=== PATIENT | male | born 1990 | race Caucasian/White ===

== ENCOUNTER 2019-04-08 12:05 | Emergency (ER) | payer MEDICAID, OTHER ==
[~2019-04-08] VITALS: Ht 170.2 cm; Wt 74.8 kg
[2019-04-08 12:13] VITALS: BP 138/87
[2019-04-08 12:55] VITALS: BP 127/72
== END 2019-04-08 13:02 | disposition home or self-care (01) ==
LOC: MED 12:05
DX: M67.432 Ganglion, left wrist (principal)
CPT/HCPCS: 73110; 99283

== ENCOUNTER 2021-03-23 12:08 | Emergency (ER) | payer OTHER ==
[~2021-03-23] VITALS: Ht 170.2 cm; Wt 76.7 kg
[2021-03-23] MEDS ORDERED: PRED20TA5 PO (12:36)
[2021-03-23] MEDS ORDERED: DIPH25TA53 PO (12:36)
[2021-03-23] MEDS ORDERED: LORA10TA19 PO (12:36)
[2021-03-23 12:43] VITALS: BP 137/72
[2021-03-23 12:46] VITALS: BP 137/72
== END 2021-03-23 12:47 | disposition home or self-care (01) ==
LOC: MED 12:08
DX: R21 Rash and other nonspecific skin eruption (principal); R03.0 Elevated blood-pressure reading, without diagnosis of hypertension; Z79.899 Other long term (current) drug therapy
CPT/HCPCS: 99283